=== PATIENT | male | born 1945 | race Caucasian/White ===

== ENCOUNTER 2020-05-17 18:06 | Emergency (ER) | payer MEDICARE ==
[~2020-05-17] VITALS: Ht 160 cm; Wt 90.9 kg
[2020-05-17] MEDS ORDERED: HYDROcodone/acetaminophen 10/325mg tab PO ONE (19:20)
[2020-05-17] MEDS ORDERED: ondansetron 4mg rapidly disintigrating tab PO ONE (19:20)
[2020-05-17] MEDS ORDERED: lisinopril 10 MG tablet PO ONE (20:55)
[2020-05-17 22:08] VITALS: BP 144/82
[2020-05-19] MEDS ORDERED: INSU100I31 SQ (00:30)
[2020-05-19] MEDS ORDERED: GABA300C PO (00:30)
[2020-05-19] MEDS ORDERED: LISI10TA4 PO (00:30)
== END 2020-05-17 22:11 | disposition home or self-care (01) ==
LOC: ER 18:07
DX: M25.552 Pain in left hip (principal); M25.551 Pain in right hip; G89.29 Other chronic pain; E78.00 Pure hypercholesterolemia, unspecified; I10 Essential (primary) hypertension; E11.9 Type 2 diabetes mellitus without complications; Z98.890 Other specified postprocedural states; Z59.0 Homelessness
CPT/HCPCS: 73522; 99284

== ENCOUNTER 2020-05-30 10:13 | Emergency (ER) | payer MEDICARE, MEDICAID ==
[~2020-05-30] VITALS: Ht 160 cm; Wt 77.3 kg
[~2020-05-30 10:13] MED LIST: ACET-1008 PO; AMLO2.5T2 PO; ATOR20TA PO; GABA300C PO; INSU100I31 SQ
--- NOTE | 2020-05-30 11:18 | NUR ---
pt rpeorrts he is homeless and has htn but does not take medications
[2020-05-30 12:57] VITALS: BP 99/62
== END 2020-05-30 13:34 | disposition home or self-care (01) ==
LOC: ER 10:14
DX: S91.302A Unspecified open wound, left foot, initial encounter (principal); S91.301A Unspecified open wound, right foot, initial encounter; L81.9 Disorder of pigmentation, unspecified; E11.42 Type 2 diabetes mellitus with diabetic polyneuropathy; E78.00 Pure hypercholesterolemia, unspecified; I10 Essential (primary) hypertension; Z98.890 Other specified postprocedural states; Z59.0 Homelessness; Z79.4 Long term (current) use of insulin; Z79.899 Other long term (current) drug therapy; X58.XXXA Exposure to other specified factors, initial encounter; Y93.89 Activity, other specified; Y92.89 Other specified places as the place of occurrence of the external cause; Y99.8 Other external cause status
CPT/HCPCS: 99284